=== PATIENT | female | born 1995 | race African-American/Black ===

== ENCOUNTER 2020-03-02 12:15 | Emergency (ER) | payer OTHER, SELFPAY ==
--- NOTE | ~2020-03-02 | CT_ITS ---
EXAMINATION: CT abdomen pelvis wo con DATE: 03/02/2020 14:01 INDICATION: Right lower quadrant abdominal pain. History of kidney stones. TECHNIQUE: Computed tomography (CT) of the abdomen and pelvis was performed without intravenous contr ast. Automated exposure control and iterative reconstruction technique were employed. Exam dose: 183 .63 mGy-cm total exam DLP. COMPARISON: None. FINDINGS: The lung bases are clear. Normal heart size. No pericardial or pleural effusion. The liver, gallbladder, bile ducts, spleen, pancreas, pancreatic duct, and adrenal glands and kidneys are unremarkable. No urinary tract calculus or hydroureteronephrosis. Normal caliber of the abdomina l aorta. No intraperitoneal or retroperitoneal or pelvic mass lesion or adenopathy or ascites. Probable appendectomy. No bowel obstruction, bowel wall thickening, pneumatosis or intraperitoneal fr ee air. Retroverted uterus. The urinary bladder, uterus and adnexal areas are otherwise unremarkable. No urinary tract calculus or hydroureteronephrosis is evident. No suspicious osteolytic or osteoblastic lesions are identified. IMPRESSION: Probable appendectomy Reviewed, dictated and finalized at [facility]. Reviewed, dictated and finalized at [facility]. IMPRESSION: Probable appendectomy
--- NOTE | ~2020-03-02 | US_ITS ---
EXAMINATION: US pelvic complete w TV DATE: 03/02/2020 15:19 INDICATION: Right pelvic pain. TECHNIQUE: Multiple transabdominal and transvaginal sonographic images of the pelvis were obtained. COMPARISON: CT abdomen and pelvis 03/02/2020 FINDINGS: TRANSABDOMINAL ULTRASOUND: The uterus measures 9.5 x 5.8 x 4.3 cm. There is no free fluid in the pelvis. TRANSVAGINAL ULTRASOUND: The endometrial complex measures 7 mm in thickness. The right ovary is not visualized. The left ovary measures 2.6 x 1.7 x 1.8 cm. There is vascular flow in left ovary. IMPRESSION: 1. Normal uterus and left ovary. Right ovary not visualized. Reviewed, dictated and finalized at location [facility].
[2020-03-02 12:42] VITALS: BP 101/70; PULSE 92; RESP 16; TEMP 36.2; O2SAT 100
[2020-03-02 12:59] LABS: Basophils Percent Auto 0.3 % (0.2-1.2); Eosinophils Percent Auto 0.5 % (0-4.4); Hematocrit 35.9 % (37.0-47.0); Hemoglobin 10.6 g/dL (12.0-15.0); Immature Granulocyte Absolute 0.02 K/mm3 (0.00-0.031); Immature Granulocyte Percent A 0.3 % (0-0.5); Lymphocytes Absolute Auto 1.24 K/mm3 (0.9-3.2); Mean Corpuscular HGB Conc 29.5 g/dl (32-36); Mean Corpuscular Hemoglobin 22.8 pg (26-34); Mean Corpuscular Volume 77.2 fl (80-100); Mean Platelet Volume 10.4 fl (7.4-10.4); Monocytes Absolute Auto 0.5 K/mm3 (0.1-0.6); Monocytes Percent Auto 8.1 % (2.6-8.5); Neutrophils Absolute Auto 4.1 K/mm3 (1.3-6.7); Neutrophils Percent Auto 69.8 % (45.5-73.1); Platelet Count Result 304 k/mm3 (150-375); Red Blood Count 4.65 M/mm3 (4.2-5.4); Red Cell Distribution Width 16.1 % (11.5-14.5); White Blood Count 5.9 K/mm3 (4.5-10.0)
[2020-03-02 13:11] LABS: Alanine Aminotransferase 11 U/L (4-35); Albumin Level 4.1 g/dL (3.5-5.1); Alkaline Phosphatase 58 U/L (38-126); Aspartate Amino Transferase 22 U/L (14-36); Bilirubin,Total 0.3 mg/dL (0.2-1.3); Blood Urea Nitrogen 5 mg/dL (7-17); Calcium 8.7 mg/dL (8.4-10.2); Carbon Dioxide 24 mmol/L (22-30); Chloride 105 mmol/L (98-107); Estimated CRCL calculation 102 ml/min; Estimated Glomerular Filt Rate > 60; Glucose 86 mg/dL (65-105); Lipase 46 U/L (23-300); Sodium 137 mmol/L (137-145)
[2020-03-02 13:20] LABS: Add Urine Microscopic? YES; Appearance Urine Cloudy (Clear); Bacteria Urine Trace /hpf; Bilirubin Urine Negative (Negative); Blood Urine 1+ (Negative); Color Urine Straw (Yellow); Glucose Urine UA Negative (Negative); Ketones Urine Negative (Negative); Leukocyte Esterase Ur 2+ LEU/UL (Negative); Mucus Urine Rare /lpf; Nitrate Urine Negative (Negative); Protein Urine 2+ mg/dL (Negative); RBC Urine >75 /hpf (0-2); Specific Grav Ur 1.015 (1.001-1.035); Squamous Epithelial Cell Urine Moderate /hpf (Few); Urobilinogen Urine Negative mg/dL (<2.0); WBC Urine >75 /hpf
[2020-03-02] MEDS: ONDANSETRON INJ 4 MG/2 ML VIAL IV PUSH (13:37)
[2020-03-02] MEDS: MORPHINE SULFATE 4 MG/ML INJ IV PUSH (13:38)
--- NOTE | 2020-03-02 14:11 | ED.ABDPAIN ---
HPI - Abdominal Pain General Chief Complaint: Abdominal Pain Stated Complaint: abd pain - RLQ Time Seen by Provider: 03/02/20 13:06 Source: patient Mode of arrival: ambulatory Limitations: no limitations History of Present Illness HPI narrative: Patient presents to the emergency department for right-sided abdominal pain x2-days. Associated with nausea and vomiting. Denies fever, diarrhea, or dysuria. Related Data Home Medications Medication Instructions Recorded Confirmed norelgestromin-ethin.estradiol patch 03/02/20 [Xulane] Allergies Allergy/AdvReac Type Severity Reaction Status Date / Time No Known Allergies Allergy Verified 03/02/20 12:42 Review of Systems Review of Systems: Narrative: CONSTITUTIONAL: Denies fever GASTROINTESTINAL: Reports abdominal pain, nausea, vomiting GENITOURINARY: Denies dysuria or hematuria. MUSCULOSKELETAL: Reports back pain All systems reviewed & are unremarkable except as noted in HPI and below PMFSH Past Medical History Medical History (Updated 03/02/20 @ 16:06 by Marva Valenzuela PA-C) Healthy female adult Surgical History Surgical History (Updated 03/02/20 @ 14:12 by Marva Valenzuela PA-C) History of appendectomy Hx of section Social History Social History (Updated 08/26/19 @ 00:33 by Sheila Haley) Smoking status: Never smoker Gender identity (if verbalized by the patient): Female Exam Narrative: Exam Narrative: GENERAL: Well-appearing, well-nourished, and in no acute distress. HEAD: Normocephalic, atraumatic. EYES: EOMI. CHEST: Clear to auscultation. No respiratory distress. No wheezes rales or rhonchi HEART: Regular rate and rhythm. No murmur heard. Normal peripheral pulses. ABDOMEN: Soft, nondistended, normal active bowel sounds. Mild tenderness to palpation of the right lower quadrant, without guarding. No CVA tenderness EXTREMITIES: Normal range of motion. No edema. SKIN: Warm, dry, no rash. Superficial partial-thickness small (2cm circumferential) grace to the right breast and right upper inner arm NEURO: No focal deficits. Alert and oriented x3. PSYCH: Normal mood and affect Course Vital Signs Vital signs: Vital Signs Temperature 97.1 F L 03/02/20 12:42 Pulse Rate 92 03/02/20 12:42 Respiratory Rate 16 03/02/20 12:42 Blood Pressure 101/70 03/02/20 12:42 Pulse Oximetry 100 03/02/20 12:42 Temperature 97.7 F 03/02/20 15:38 Pulse Rate 75 03/02/20 15:38 Respiratory Rate 18 03/02/20 15:38 Blood Pressure 90/49 L 03/02/20 15:38 Pulse Oximetry 100 03/02/20 15:38 MDM - Abdominal Pain MDM Narrative Medical decision making narrative: Patient presents the emergency department for right lower quadrant pain x2 days. She is afebrile and nontoxic-appearing. CBC with mild microcytic anemia with hemoglobin of 10.6. No leukocytosis. Metabolic panel without acute changes. UA with evidence of possible urinary tract infection, this will go for culture. CT scan of the abdomen pelvis without acute findings. Pelvic ultrasound without acute findings. Patient will be started on oral antibiotics for possible urinary tract infection. Patient is stable and felt appropriate further outpatient evaluation. She is to follow-up with primary care doctor. She was given warnings to return to the ER Lab Data Attestation: I reviewed the patient's lab results. Result diagrams: 03/02/20 12:48 03/02/20 12:48 Labs: Lab Results 03/02/20 03/02/20 03/02/20 Range/Units 12:48 12:48 13:05 WBC 5.9 (4.5-10.0) K/mm3 RBC 4.65 (4.2-5.4) M/mm3 Hgb 10.6 L (12.0-15.0) g/dL Hct 35.9 L (37.0-47.0) % MCV 77.2 L (80-100) fl MCH 22.8 L (26-34) pg MCHC 29.5 L (32-36) g/dl RDW 16.1 H (11.5-14.5) % Plt Count 304 (150-375) k/mm3 MPV 10.4 (7.4-10.4) fl Immature Gran % (Auto) 0.3 (0-0.5) % Neut % (Auto) 69.8 (45.5-73.1) % Lymph % (Auto) 21.0
[2020-03-02 15:38] VITALS: BP 90/49; PULSE 75; RESP 18; TEMP 36.5; O2SAT 100
== END 2020-03-02 16:14 | disposition home or self-care (01) ==
PROVIDERS: Emergency Medicine; Emergency Provider Emergency Medicine; PCP Obstetrics & Gynecology
DX: N30.00 Acute cystitis without hematuria (principal); T22.031A Burn of unspecified degree of right upper arm, initial encounter; T21.01XA Burn of unspecified degree of chest wall, initial encounter; T31.0 Burns involving less than 10% of body surface; W39.XXXA Discharge of firework, initial encounter
CPT/HCPCS: 36415; 74176; 76830; 76856; 80053; 81001; 81025; 83690; 85025; 87077; 87086; 87088; 87186; 96374; 96375; 99284; J0131; J2270; J2405